=== PATIENT | male | born 1995 | race Caucasian/White ===

== ENCOUNTER 2025-09-20 11:24 | Outpatient (CLI) | payer OTHER, SELFPAY | END 2025-09-20 11:25 | disposition home or self-care (01) | LOC: NFLDUCREF 11:27 | PROVIDERS: Visit Provider Family Medicine | DX: N48.1 Balanitis (principal) | CPT/HCPCS: 87070; 87186 ==

== ENCOUNTER 2025-09-24 10:31 | Outpatient (CLI) | payer OTHER, SELFPAY | END 2025-09-24 10:32 | disposition home or self-care (01) | PROVIDERS: Visit Provider Family Medicine | DX: Z00.00 Encounter for general adult medical examination without abnormal findings (principal); A07.0 Balantidiasis; Z13.6 Encounter for screening for cardiovascular disorders | CPT/HCPCS: 80053; 80061; 86703; 86706; 86780; 86803; 87340 ==